=== PATIENT | male | born 1950 | race Caucasian/White ===

== ENCOUNTER 2022-09-23 15:32 | Inpatient (IN) | payer MEDICARE ==
[~2022-09-23] VITALS: Ht 175.3 cm; Wt 63.4 kg
[2022-09-23] MEDS ORDERED: PIOG30 PO (16:43)
[2022-09-23] MEDS ORDERED: ALBU90OI INH (16:44)
[2022-09-23] MEDS ORDERED: Ventolin5 MG/1 ML INH (16:46)
[2022-09-23] MEDS ORDERED: ANORO ELLIPTA1 EACH INH (16:47)
[2022-09-23] MEDS ORDERED: ASPI81CH PO (16:47)
[2022-09-23] MEDS ORDERED: ATOR10 PO (16:48)
[2022-09-23] MEDS ORDERED: BUDESONIDE0.5 MG/2 M INH (16:49)
[2022-09-23] MEDS ORDERED: POTASSIUM PO (16:52)
[2022-09-23] MEDS ORDERED: FAMO40 PO (16:52)
[2022-09-23] MEDS ORDERED: GLIM4 PO (16:52)
[2022-09-23] MEDS ORDERED: TAMS.4ER PO (16:53)
[2022-09-23] MEDS ORDERED: SUMA25 PO (16:53)
[2022-09-23] MEDS ORDERED: THERA-D2000 UNIT PO (16:54)
[2022-09-23 17:12] LABS: Source, Urine Clean Catch
[2022-09-23 17:16] LABS: Appearance, Urine Clear (Clear); Bilirubin, Urine Neg (Neg); Blood, Urine Neg (Neg); Color, Urine Yellow (P-Yellow); Glucose Qualitative, Urine Neg (Neg); Ketones, Urine 2+ (Neg); Leukocyte Esterase, Urine Neg (Neg); Nitrite, Urine Neg (Neg); Protein, Urine Neg (Neg); Specific Gravity, Urine 1.015 (1.003-1.022); Urobilinogen, Urine NORM (Normal)
--- NOTE | 2022-09-23 17:32 | NUR ---
ADMIT/SHIFT SUMMARY PT ORIENTED TO ROOM UPON ADMISSION. SKIN INTACT. LS CLEAR. HR REGULAR. WATER PROVIDED TO DRINK. EKG OBTAINED BY OTTONIEL ZAMBRANO. PT DENIES CP/SOB AT THIS TIME. VS REVIEWED. PT CURRENTLY RESTING INBED. CALL LIGHT IN REACH. PT ENCOURAGED TO CALL FORE HELP BEFORE GETTING OUT OF BED. SBA IN ROOM. PT AWAITING DINNER. CALL LIGHT IN REACH. DENIES OTHER NEEDS AT THIS TIME.
[2022-09-23 17:49] LABS: Bun/Creatinine Ratio 11.4 (12.0-20.0); Creatinine, Blood 1.32 mg/dL (0.60-1.20); Potassium, Blood 4.1 mmol/L (3.5-5.5)
[2022-09-23 23:53] LABS: U Amphetamine Screen Not Detected; U Barbituate Screen Not Detected; U Benzodiazapine Screen Not Detected; U Buprenorphine Screen Not Detected; U Cannabinoids Screen DETECTED; U Cocaine Screen Not Detected; U Methadone Screen Not Detected; U Methamphetamine Screen Not Detected; U Opiates Screen Not Detected; U Oxycodone Screen Not Detected; U Phencyclidine Screen Not Detected; U Propoxyphene Screen Not Detected
[2022-09-24 03:39] LABS: Albumin, Blood 3.5 g/dL (3.4-5.0); Albumin/Globulin Ratio 1.2 (0.8-1.8); Bilirubin, Total 0.4 mg/dL (0.1-1.0); Bun/Creatinine Ratio 11.7 (12.0-20.0); Calcium, Blood 8.2 mg/dL (8.5-10.1); Creatinine, Blood 1.28 mg/dL (0.60-1.20); Globulin, Blood 2.9 g/dL (2.2-4.0); Potassium, Blood 3.7 mmol/L (3.5-5.5); Total Protein, Blood 6.4 g/dL (6.4-8.2)
--- NOTE | 2022-09-24 04:27 | NUR ---
SHIFT SUMMARY; NO ACUTE CHANGES OVERNIGHT. THE PT IS AXO X4 AND A STANDBY ASSIT. HOWEVER, THE PT USED THE BEDSIDE URINAL T/O THE NIGHT. THE PTS LAB WORK THAT WAS DRAWN AT 0020 REVEALED A BS OF 58. I GAVE THE PTS 4 OZ OF APPLE JUICE AND RECHECKED THE PTS BLOOD SUGAR 20 MINUTES LATER AND HIS BS IS NOW 88. THE PT HAS NS RUNNING AT 75MLS AND HOUR. TELE IS IN PLACE, NSR IN THE 60'S. THE PT DENIES ANY PAIN, THE PT STATES HE HAS SOME SOB BUT STATES THE BREATHING TREATEMENT EARLIER IN THE NIGHT REALLY HELPED HIS SOB. PTS O2 SATURATION HAS BEEN 100% ON RA. CURRENTLY THE PT IS RESTING IN BED WITH THE BED IN THE LOWEST POSITION AND THE CALL LIGHT AT BEDSIDE.
[2022-09-24 04:43] LABS: BASOPHILS ABSOLUTE AUTO 0.05 K/mm3 (0.00-0.23); BASOPHILS PERCENT AUTO 1 % (0-2); EOSINOPHILS ABSOLUTE AUTO 0.14 K/mm3 (0.00-0.68); EOSINOPHILS PERCENT AUTO 4 % (0-6); Hematocrit 37.3 % (37.0-53.0); Hemoglobin 13.1 g/dL (13.5-17.5); IMMATURE GRAN ABSOLUTE AUTO 0.01 K/mm3 (0.00-0.10); IMMATURE GRAN PERCENT AUTO 0 % (0-1); LYMPHOCYTES ABSOLUTE AUTO 0.96 K/mm3 (0.84-5.20); LYMPHOCYTES PERCENT AUTO 24 % (21-46); MONOCYTES PERCENT AUTO 10 % (4-13); Mean Corpuscular HGB 30.5 pg (26.0-34.0); Mean Corpuscular HGB Conc 35.1 g/dL (31.5-36.5); Mean Corpuscular Volume 87 fL (80-100); Mean Platelet Volume 8.4 fL (9.1-12.4); NEUTROPHILS ABSOLUTE AUTO 2.48 K/mm3 (1.96-9.15); NEUTROPHILS PERCENT AUTO 61 % (41-73); Platelet Count 203 K/mm3 (150-400); RDW Coefficient Variation 11.8 % (11.7-14.2); RDW Standard Deviation 37.9 fL (35.1-46.3); Red Blood Cell Count 4.29 M/mm3 (4.30-5.90); White Blood Cell Count 4.04 K/mm3 (4.00-11.30)
--- NOTE | 2022-09-24 19:26 | NUR ---
SHIFT SUMMARY- PT IS A/O PLESANT AND COOPERATIVE. HE AMBULATED TO THE RESTROOM, WORKED WITH PT AND TOLERATED WELL. AWAITING ECHO. HIS BED IS IN THE LOW POSITION AND CALL LIGHT WITHIN REACH. BG ARE STABLE THIS SHIFT. EATING AND DRINKING WELL.
--- NOTE | 2022-09-25 04:55 | NUR ---
PULMONARY FELLOW SUMMARY NO ACUTE EVENTS. PT A/OX4. PLEASANT AND COOPERATIVE. PLAN TO HAVE ECHO TOMORROW. PT ON TELE--NORMAL SINUS 79BPM. DENIES CHEST PAIN/PRESSURE. PT RESTING IN BED. PT SHOWERED AFTER PM MEDS--SOME SOB W/ACTIVITY. O2 SATS WNL. HS BS 172--NO COVERAGE INDICATED. PT ABLE TO MAKE NEEDS KNOWN. CALL LIGHT ACCESSIBLE. BED LOCKED/LOW.
[2022-09-25 06:01] LABS: BASOPHILS ABSOLUTE AUTO 0.05 K/mm3 (0.00-0.23); BASOPHILS PERCENT AUTO 1 % (0-2); EOSINOPHILS ABSOLUTE AUTO 0.14 K/mm3 (0.00-0.68); EOSINOPHILS PERCENT AUTO 4 % (0-6); Hematocrit 36.1 % (37.0-53.0); Hemoglobin 12.8 g/dL (13.5-17.5); IMMATURE GRAN ABSOLUTE AUTO 0.01 K/mm3 (0.00-0.10); IMMATURE GRAN PERCENT AUTO 0 % (0-1); LYMPHOCYTES ABSOLUTE AUTO 1.31 K/mm3 (0.84-5.20); LYMPHOCYTES PERCENT AUTO 35 % (21-46); MONOCYTES ABSOLUTE AUTO 0.56 K/mm3 (0.16-1.47); MONOCYTES PERCENT AUTO 15 % (4-13); Mean Corpuscular HGB 30.8 pg (26.0-34.0); Mean Corpuscular HGB Conc 35.5 g/dL (31.5-36.5); Mean Corpuscular Volume 87 fL (80-100); Mean Platelet Volume 8.9 fL (9.1-12.4); NEUTROPHILS ABSOLUTE AUTO 1.65 K/mm3 (1.96-9.15); NEUTROPHILS PERCENT AUTO 44 % (41-73); Platelet Count 188 K/mm3 (150-400); RDW Coefficient Variation 11.9 % (11.7-14.2); RDW Standard Deviation 38.2 fL (35.1-46.3); Red Blood Cell Count 4.16 M/mm3 (4.30-5.90); White Blood Cell Count 3.72 K/mm3 (4.00-11.30)
[2022-09-25 06:22] LABS: Bun/Creatinine Ratio 14.6 (12.0-20.0); Creatinine, Blood 1.51 mg/dL (0.60-1.20); Potassium, Blood 4.1 mmol/L (3.5-5.5)
[2022-09-25 16:10] LABS: Bun/Creatinine Ratio 18.1 (12.0-20.0); Calcium, Blood 8.8 mg/dL (8.5-10.1); Creatinine, Blood 1.27 mg/dL (0.60-1.20); Potassium, Blood 4.2 mmol/L (3.5-5.5)
--- NOTE | 2022-09-25 18:39 | NUR ---
SHIFT SUMMARY- PT IS A/O, PLESANT AND COOPERATIVE. ECHO PREFORMED THIS SHIFT. IV FLUIDS WERE ADDED DUE TO LOW BLOOD PRESSURE THIS MORNING. PT WORKED WITH PHYSICAL THERAPY THIS SHIFT AND TOLERATED WELL. HIS BED IS IN THE LOW POSITION AND CALL LIGHT IS WITIN REACH.
--- NOTE | 2022-09-26 03:06 | NUR ---
Patient resting in room at this time.
[2022-09-26 06:18] LABS: BASOPHILS ABSOLUTE AUTO 0.06 K/mm3 (0.00-0.23); BASOPHILS PERCENT AUTO 1 % (0-2); EOSINOPHILS ABSOLUTE AUTO 0.14 K/mm3 (0.00-0.68); EOSINOPHILS PERCENT AUTO 3 % (0-6); Hematocrit 36.3 % (37.0-53.0); Hemoglobin 12.6 g/dL (13.5-17.5); IMMATURE GRAN ABSOLUTE AUTO 0.01 K/mm3 (0.00-0.10); IMMATURE GRAN PERCENT AUTO 0 % (0-1); LYMPHOCYTES ABSOLUTE AUTO 1.75 K/mm3 (0.84-5.20); LYMPHOCYTES PERCENT AUTO 41 % (21-46); MONOCYTES ABSOLUTE AUTO 0.57 K/mm3 (0.16-1.47); MONOCYTES PERCENT AUTO 13 % (4-13); Mean Corpuscular HGB 30.8 pg (26.0-34.0); Mean Corpuscular HGB Conc 34.7 g/dL (31.5-36.5); Mean Corpuscular Volume 89 fL (80-100); Mean Platelet Volume 9.2 fL (9.1-12.4); NEUTROPHILS ABSOLUTE AUTO 1.78 K/mm3 (1.96-9.15); NEUTROPHILS PERCENT AUTO 41 % (41-73); Platelet Count 196 K/mm3 (150-400); RDW Coefficient Variation 12.2 % (11.7-14.2); RDW Standard Deviation 39.7 fL (35.1-46.3); Red Blood Cell Count 4.09 M/mm3 (4.30-5.90); White Blood Cell Count 4.31 K/mm3 (4.00-11.30)
[2022-09-26 06:42] LABS: Bun/Creatinine Ratio 19.4 (12.0-20.0); Calcium, Blood 8.7 mg/dL (8.5-10.1); Creatinine, Blood 1.29 mg/dL (0.60-1.20); Potassium, Blood 4.3 mmol/L (3.5-5.5)
--- NOTE | 2022-09-26 20:13 | NUR ---
SHIFT SUMMARY PT A&OX4 AND PLEASANT. NO C/O PAIN OR SYNCOPE. PT COMPLETED STRESS TEST TODAY. RESULTS WAITING TO BE SEEN BY DOCTOR. PT SALINE LOCKED PER DRY PRIMER POWDER BLENDER NURSE. TELE REPORTED SHORT RUN OF BIGEMENY IN AM. DR WILLIAMSON NOTIFIED AND NO OREDERS GIVEN. PT REPORTS NO BM SINCE THURSDAY AND VERBAIZED THAT THAT IS NORMAL FOR HIM. PT STATES HE IS PASSING GAS. CALLS APPROPRIATELY. BED IN LOWEST POSITION AND CALL LIGHT IN REACH. REPORT GIVEN TO DRY PRIMER POWDER BLENDER NURSE.
--- NOTE | 2022-09-27 05:21 | NUR ---
SHIFT SUMMARY - NO ACUTE CHANGES THROUGHOUT THIS SHIFT. PT DENIED FEELING DIZZY/LIGHTHEADED OR SOB THROUGHOUT THE NIGHT. PT'S MAIN COMPLAINT WAS LACK OF SLEEP. REPORT FROM PREVIOUS SHIFT, IS POTENTIAL FOR DISCHARGE HOME TODAY. IV FLUIDS INFUSING TO RFA IV SITE WITHOUT COMPLICATIONS. PT DENIED ANY PAIN, CHEST PAIN, OR HEADACHE THROUGHOUT THE NIGHT. FLUIDS AT BEDSIDE. BED IN LOW POSITION. CALL LIGHT WITHIN REACH. WILL CONTINUE TO MONITOR UNTIL AM SHIFT CHANGE.
[2022-09-27 06:18] LABS: Bun/Creatinine Ratio 21.3 (12.0-20.0); Calcium, Blood 8.4 mg/dL (8.5-10.1); Creatinine, Blood 1.22 mg/dL (0.60-1.20); Potassium, Blood 4.2 mmol/L (3.5-5.5)
--- NOTE | 2022-09-27 13:19 | NUR ---
DISCHARGE NOTE PT DISCHARGED TO HOME, A FAMILY MEMBER ARRIVED TO PICK HIM UP. DISCHARGE EDUCATION WAS PROVIDED, MEDICATIONS FAXED TO THE PHARMACY OF HIS CHOICE. IV REMOVED SUCCESSFULLY AND PERSONAL BELONGINGS RETURNED.
== END 2022-09-27 12:40 | disposition home or self-care (01) | DRG 683 ==
LOC: MEDS 15:32 → ENPENDDIS 09-27 10:01 → MEDS 09-27 12:40
PROVIDERS: ADMIT Internal Medicine
DX: N17.9 Acute kidney failure, unspecified (principal); E87.1 Hypo-osmolality and hyponatremia; I95.1 Orthostatic hypotension; N18.9 Chronic kidney disease, unspecified; N40.0 Benign prostatic hyperplasia without lower urinary tract symptoms; D63.1 Anemia in chronic kidney disease; E11.22 Type 2 diabetes mellitus with diabetic chronic kidney disease; J44.9 Chronic obstructive pulmonary disease, unspecified; K21.9 Gastro-esophageal reflux disease without esophagitis; B19.20 Unspecified viral hepatitis C without hepatic coma; E78.5 Hyperlipidemia, unspecified; Z98.890 Other specified postprocedural states; Z87.891 Personal history of nicotine dependence; Z88.8 Allergy status to other drugs, medicaments and biological substances
CPT/HCPCS: 36415; 70450; 72125; 78452; 80048; 80053; 81003; 82947; 83735; 84295; 84484; 85025; 90686; 93005; 93010; 93017; 93306; 94640; 94664; 94760; 96372; 97116; 97162; A9270; A9500; G0008; G0378; J0706; J1650; J2785; J7030